=== PATIENT | male | born 1975 | race Caucasian/White ===

== ENCOUNTER 2018-09-19 06:17 | Emergency (ER) | payer MEDICAID ==
[~2018-09-19] VITALS: Ht 172.7 cm; Wt 78.0 kg
[2018-09-19] MEDS ORDERED: VISCOUS LIDOCAINE 2% 15 ML UDC MM PRN (07:15)
[2018-09-19] MEDS ORDERED: SUCRALFATE 1 G/10 ML UDC PO ONE (07:15)
[2018-09-19] MEDS ORDERED: MAGNESIUM/ALUMINUM HYDROXIDE/SIMETHICONE 30ML UDC PO ONE (07:15)
[2018-09-19 07:35] VITALS: BP 135/80
== END 2018-09-19 08:27 | disposition home or self-care (01) ==
LOC: ER 06:17
DX: K21.9 Gastro-esophageal reflux disease without esophagitis (principal); I10 Essential (primary) hypertension; Z98.890 Other specified postprocedural states; Z87.442 Personal history of urinary calculi
CPT/HCPCS: 99283; 99284

== ENCOUNTER 2022-02-18 08:32 | Emergency (ER) | payer MEDICAID ==
[~2022-02-18] VITALS: Ht 160 cm; Wt 83.0 kg
[2022-02-18] MEDS ORDERED: FAMOTIDINE 20MG/2ML VIAL IV ONE (09:15)
[2022-02-18 09:20] LABS: CLARITY URINE CLEAR (CLEAR); COLOR URINE YELLOW (YELLOW); KETONES URINE NEGATIVE (NEGATIVE); LEUKOCYTE ESTERASE URINE NEGATIVE (NEGATIVE); NITRITE URINE NEGATIVE (NEGATIVE); OCCULT BLOOD URINE NEGATIVE (NEGATIVE); PROTEIN URINE NEGATIVE (NEGATIVE); SPECIFIC GRAVITY URINE 1.007 (1.005-1.030); UROBILINOGEN URINE 0.2 E.U./dL (0.2-1.0)
[2022-02-18 11:38] LABS: BASOPHILS % 0.8 % (0.0-2.0); EOSINOPHILS % 4.1 % (0.0-5.0); HEMATOCRIT. 47.4 % (42.0-52.0); HEMOGLOBIN. 16.4 g/dL (14.0-18.0); LYMPHOCYTES % 23.8 % (20.0-50.0); MEAN CORPUSCULAR HEMOGLOBIN 29.3 pg (28.0-32.0); MEAN CORPUSCULAR VOLUME 84.5 fL (80.0-94.0); MEAN PLATELET VOLUME 9.2 fl (7.4-10.4); MONOCYTES % 7.8 % (2.0-8.0); NEUTROPHILS % 63.5 % (40.0-76.0); PLATELET 202 x1000/uL (130-400); RED BLOOD CELL COUNT 5.62 mill/uL (4.7-6.1); RED CELL DISTRIBUTION WIDTH 14.4 % (11.6-14.6)
[2022-02-18 11:47] LABS: CHLORIDE 108 mEq/L (98-107)
[2022-02-18] MEDS ORDERED: FAMOTIDINE 20MG/2ML VIAL IV NR (13:45)
[2022-02-18] MEDS ORDERED: OMEP20CA14 MT (16:27)
[2022-02-18] MEDS ORDERED: TRAM-529 MT (16:27)
[2022-02-18 16:55] VITALS: BP 132/90
== END 2022-02-18 16:56 | disposition home or self-care (01) ==
LOC: ER 08:32
DX: R10.12 Left upper quadrant pain (principal); E78.00 Pure hypercholesterolemia, unspecified; I10 Essential (primary) hypertension
CPT/HCPCS: 36415; 80053; 81003; 83690; 85025; 96374; 99283; J3490

== ENCOUNTER 2024-09-27 16:54 | Emergency (ER) | payer SELFPAY ==
[~2024-09-27] VITALS: Ht 157.5 cm; Wt 82.0 kg
[~2024-09-27 16:54] MED LIST: OMEP20CA14 MT; TRAM-534 MT
[2024-09-27 16:59] VITALS: O2SAT 97
[2024-09-27 17:17] VITALS: BP 168/104; RESP 16; TEMP 98.7; O2SAT 97
[2024-09-27 17:26] LABS: BASOPHILS % 0.7 % (0.0-2.0); EOSINOPHILS % 2.9 % (0.0-5.0); HEMATOCRIT. 45.5 % (42.0-52.0); HEMOGLOBIN. 15.3 g/dL (14.0-18.0); LYMPHOCYTES % 15.2 % (20.0-50.0); MEAN CORPUSCULAR HEMOGLOBIN 28.7 pg (28.0-32.0); MEAN CORPUSCULAR HGB CONC 33.7 g/dL (31.0-37.0); MEAN CORPUSCULAR VOLUME 85.2 fL (80.0-94.0); MEAN PLATELET VOLUME 9.1 fl (7.4-10.4); MONOCYTES % 6.6 % (2.0-8.0); NEUTROPHILS % 74.6 % (40.0-76.0); PLATELET 184 x1000/uL (130-400); RED BLOOD CELL COUNT 5.35 mill/uL (4.7-6.1); RED CELL DISTRIBUTION WIDTH 15.7 % (11.6-14.6)
[2024-09-27 17:27] LABS: POTASSIUM 4.7 mEq/L (3.5-5.1)
[2024-09-27 17:29] LABS: CALCIUM 9.6 mg/dL (8.7-10.4)
[2024-09-27 17:34] LABS: CREATININE 1.4 mg/dL (0.6-1.3)
[2024-09-27 18:24] LABS: CLARITY URINE CLEAR (CLEAR); COLOR URINE YELLOW (YELLOW); GLUCOSE URINE NEGATIVE (NEGATIVE); KETONES URINE NEGATIVE (NEGATIVE); LEUKOCYTE ESTERASE URINE NEGATIVE (NEGATIVE); NITRITE URINE NEGATIVE (NEGATIVE); OCCULT BLOOD URINE 2+ (NEGATIVE); PH URINE 5.5 (4.5-8.0); PROTEIN URINE NEGATIVE (NEGATIVE); SPECIFIC GRAVITY URINE 1.013 (1.005-1.030); UROBILINOGEN URINE 0.2 E.U./dL (0.2-1.0)
[2024-09-27 18:39] LABS: BACTERIA URINE 1+; SQUAMOUS EPITHELIAL CELL URINE FEW /lpf (RARE/1+)
[2024-09-27 18:40] LABS: WBC URINE 0-2 /hpf (0-2)
[2024-09-27] MEDS: KETOROLAC 30MG/ML VIAL IM NR (19:49)
[2024-09-27] MEDS ORDERED: TRAM50TA3 MT (20:58)
[2024-09-27] MEDS ORDERED: IBUP-2030 MT (20:58)
[2024-09-27] MEDS ORDERED: TAMS-11 MT (20:58)
[2024-09-27 21:13] VITALS: PULSE 80
[2024-09-27] MEDS: TAMSULOSIN HCL 0.4MG SR CAPSULE PO ONE (21:13)
== END 2024-09-27 21:38 | disposition home or self-care (01) ==
LOC: ER 16:54
DX: N20.0 Calculus of kidney (principal); I10 Essential (primary) hypertension; Z79.899 Other long term (current) drug therapy; Z87.442 Personal history of urinary calculi
CPT/HCPCS: 99285; 74176; 80048; 81003; 85025; 36415; 96372; J1885